=== PATIENT | female | born 1965 | race Caucasian/White ===

== ENCOUNTER → 2025-07-27 07:05 | Outpatient (CLI) | payer OTHER, SELFPAY ==
[2025-07-27 08:13] LABS: Add Manual Diff / Slide Review NO; Hematocrit 38.2 % (36-46); Hemoglobin 13.1 g/dL (12.0-16.0); Lymphocytes Absolute Auto 2700 /uL (1100-4500); Mean Corpuscular HGB Conc 34.2 % (30-36); Mean Corpuscular Hemoglobin 31.1 PG (26-34); Mean Corpuscular Volume 91.1 fL (80-100); Platelet Count 248 X10^3/uL (150-400)
[2025-07-27 08:36] LABS: Alanine Aminotransferase 12 IU/L (<35); Albumin 4.0 g/dL (3.5-5.0); Albumin Globulin Ratio 1.4 (1.0-2.8); Alkaline Phosphatase 47 U/L (38-126); Blood Urea Nitrogen 17 mg/dL (7-17); Calcium 9.6 mg/dL (8.4-10.2); Carbon Dioxide 28 mmol/L (22-32); Chloride 105 mmol/L (98-107); Estimated Glomerular Filt Rate > 60 mL/min (>60); Globulin 2.8 g/dL (1.7-4.1); Glucose 86 mg/dL (70-99); HEMOLYSIS < 15 (0-50); Potassium 4.5 mmol/L (3.4-5.1); Sodium 139 mmol/L (137-145); Total Protein 6.8 g/dL (6.3-8.2)
[2025-07-27 09:03] LABS: TSH w/ Reflex to FT4 0.32 uIU/mL (0.47-4.68)
[2025-07-27 09:27] LABS: Free T4, Direct Thyroxine 1.21 ng/dL (0.78-2.19)
== END ==
PROVIDERS: PCP Family Medicine; Referring Provider Family Medicine; Visit Provider Family Medicine
DX: Z78.0 Asymptomatic menopausal state (principal); E78.5 Hyperlipidemia, unspecified; E03.9 Hypothyroidism, unspecified
CPT/HCPCS: 36415; 80053; 84439; 84443; 85025

== ENCOUNTER 2025-08-14 08:25 | Emergency (ER) | payer OTHER, SELFPAY ==
[2025-08-14 08:55] VITALS: BP 154/81; PULSE 59; RESP 14; TEMP 36.4; O2SAT 99; BMI 24.7
== END 2025-08-14 11:46 | disposition left against medical advice (07) ==
PROVIDERS: Emergency Provider Student in an Organized Health Care Education/Training Program; PCP Family Medicine
CPT/HCPCS: 99281

== ENCOUNTER 2025-08-21 20:19 | Emergency (ER) | payer OTHER, SELFPAY ==
[2025-08-21 20:37] VITALS: BP 165/78; PULSE 60; RESP 15; TEMP 37.2; O2SAT 100; BMI 24.7
[2025-08-21 23:02] VITALS: PULSE 61; O2SAT 98
[2025-08-21 23:03] VITALS: BP 162/70; PULSE 60; O2SAT 99
[2025-08-21 23:30] VITALS: PULSE 58; O2SAT 98
[2025-08-21 23:31] VITALS: BP 156/82; PULSE 58; O2SAT 99
--- NOTE | 2025-08-21 23:52 | ED_ITS ---
HPI - Headache General Chief Complaint: Headache Stated Complaint: headache/vison changes Time Seen by Provider: 08/21/25 23:07 Mode of arrival: Ambulatory History of Present Illness HPI Narrative: 60-year-old woman active, minimal medical history over the last 2 weeks has been having episodes of very loud tinnitus, increasing overall head pressure, complaints that she can hear her pulse in her head. She does not describe any localizing neurologic symptoms such as numbness, double vision, peripheral field visual deficits. She did see her primary care physician on the and head CT scan was ordered. She was instructed to come to the emergency department with any worsening symptoms. This afternoon she had an ocular migraine in the right eye lasting approximately 20 minutes slight increased head pressure with this. All symptoms have since resolved. She is worried that that was worsening symptoms and comes in this evening for further evaluation Related Data Home Medications ?Medication ?Instructions ?Recorded ?Confirmed alprazolam 1 mg tablet (Xanax) 1 mg PO DAILY PRN anxie ty 08/21/25 08/21/25 Previous Rx's ?Medication ?Instructions ?Recorded propranolol 20 mg tablet 20 mg PO BID PRN anxiety #30 tabs 07/25/25 estradiol 1 mg tablet 1 mg PO DAILY #30 tabs 08/02 levothyroxine 100 mcg tablet 100 mcg PO DAILY #90 tabs 08/02/25 Allergies Allergy/AdvReac Type Severity Reaction Status Date / Time No Known Drug Allergies Allergy Unverified 08/21/25 20:36 Review of Systems Review of Systems Narrative: Pertinent positive and negative findings as per HPI Patient History Medical History (Updated 08/22/25 @ 00:00 by Janett Regan MD) HLD (hyperlipidemia) Hypothyroidism Menopause Surgical History History of hysterectomy Smoking Status: Never smoker Exam Initial Vital Signs Initial Vital Signs: Vital Signs Temperature 99 F 08/21/25 20:37 Pulse Rate 60 08/21/25 20:37 Respiratory Rate 15 08/21/25 20:37 Blood Pressure 165/78 H 08/21/25 20:37 Pulse Oximetry 100 08/21/25 20:37 Oxygen Delivery Method Room Air 08/21/25 20:37 General: Alert appropriate in no acute distress Respiratory: Able to speak in full sentences, no obvious respiratory distress Skin: No obvious rashes, warm and dry Neurologic: Grossly intact no obvious asymmetries or abnormalities. Visual cota are appropriate. Minimal tinnitus at this time. NIH=0 Psych: appropriate insight and affect, cooperative Course Vital Signs Vital signs: Vital Signs - 8 hr 08/21/25 20:37 08/21/25 23:02 08/21/25 23:03 Temperature 99 F Pulse Rate 60 61 Respiratory Rate 15 Blood Pressure 165/78 H 162/70 H Pulse Oximetry 100 98 Oxygen Delivery Method Room Air 08/21/25 23:03 Temperature Pulse Rate 60 Respiratory Rate Blood Pressure Pulse Oximetry 99 Oxygen Delivery Method MDM - Headache MDM Narrative Medical decision making narrative: 60-year-old woman with tinnitus and increased head pressure over the last 2 weeks ocular migraine today. No numbness, weakness, visual field deficits, double vision, amaurosis fugax, palpitations or dyspnea. Her primary care doctor has ordered a CT scan of the head and with the development of an ocular migraine lasting about 20 minutes this evening she was concerned that that might be a reason for more urgent evaluation. We discussed options in the emergency department today. Unfortunately, the CT scanner is down and we are obtaining CT scans by transporting patients to [facility]. Together, with shared decision- making, we discussed that as an option versus going home, and is now midnight, and checking on the outpatient referral as well as availability of CT scans here at [facility] for tomorrow. I believe this is a safe option and I have encouraged her to return to the emergency department with any changing symptoms. Discharge Plan Departure Patient Disposition: Home Clinical Impression: Ocular migraine, Tinnitus Activity Restrictions/Additional Instructions: Thank you for coming in today With the 2 weeks of increasing tinnitus, occasional dizziness, head fullness and generally feeling well it does not make sense that head CT is inappropriate part of your workup. Reason for more emergent imaging or things that would be concerning for a stroke, increased intracranial pressure or bleeding. Something like weakness, numbness, loss of vision, inability to speak. An ocular migraine is certainly disturbing however it is not quite the same as visual changes that 1 would associate with a stroke or a blood clot or a brain tumor. Given that, we discussed options for treatment in the emergency room tonight. Unfortunately our CT scanner has been down all day long and [facility]. I do believe that it is safe to wait until the morning and see if you are [place] referral has gone through and if an outpatient study can be done sometime tomorrow. If I did not think that this was safe and that urgent imaging is required, we would absolutely do that. If you find that you are getting worse or develop any new symptoms, please feel free to return to the emergency department for further evaluation. Prescriptions: No Action propranolol 20 mg tablet 20 mg PO BID PRN (Reason: anxiety) Qty: 30 0RF estradiol 1 mg tablet 1 mg PO DAILY Qty: 30 3RF levothyroxine 100 mcg tablet 100 mcg PO DAILY Qty: 90 3RF alprazolam [Xanax] 1 mg tablet 1 mg PO DAILY PRN (Reason: anxiety) Referrals: Amarilis Shirley MD [Primary Care Provider, Family Practice] Stand Alone Forms: Patient Portal/API
== END 2025-08-22 00:03 | disposition home or self-care (01) ==
PROVIDERS: Emergency Provider Emergency Medicine; PCP Family Medicine
DX: G43.109 Migraine with aura, not intractable, without status migrainosus (principal); H93.19 Tinnitus, unspecified ear
CPT/HCPCS: 99281

== ENCOUNTER → 2025-08-23 06:40 | Outpatient (CLI) | payer OTHER, SELFPAY ==
--- NOTE | 2025-08-23 06:41 | DI.CT.S_ITS ---
PROCEDURE: CT ANGIO HEAD AND NECK INDICATIONS: pulsating tinnitus TECHNIQUE: After the administration of intravenous contrast, 1 mm thick sections acquired from the aortic arch through the [place] [facility] [place]. 3-dimensional ewzdzkh-ftsjyblkj-jzmrawpbqf (MIP) and/or volume rendering reformats were acquired of the central intracranial vasculature and neck separately. For radiation dose reduction, the following was used: automated exposure control, adjustment of mA and/or kV according to patient size. COMPARISON: None. FINDINGS: Image quality: Diagnostic. Cerebral CT Angiogram: Internal carotid arteries: No acute findings. Intracranial ICA are patent with no significant stenosis. No occlusion. No aneurysm. Anterior cerebral arteries: Diffusely small right A1 segment which may represent congenitally small right A1 versus diffuse high-grade stenosis. Rest of the anterior cerebral arteries are well opacified without hemodynamically significant stenosis. No occlusion. No aneurysm. Middle cerebral arteries: Unremarkable. No significant stenosis. No occlusion. No aneurysm. Posterior cerebral arteries: Unremarkable. No significant stenosis. No occlusion. No aneurysm. Basilar artery: Unremarkable. No significant stenosis. No occlusion. No aneurysm. Vertebral arteries: Unremarkable as visualized. Dural venous sinuses: Unremarkable given phase of enhancement. Other: Arterial phase appearance of the brain parenchyma is unremarkable. Neck CT Angiogram: Internal carotid arteries: Unremarkable. No significant stenosis. No dissection or occlusion. Common carotid arteries: Unremarkable. No significant stenosis. No dissection or occlusion. External carotid arteries: Unremarkable. No occlusion. Vertebral arteries: Unremarkable. No significant stenosis. No dissection or occlusion. Aortic Arch and Mediastinum: Partially visualized aortic arch unremarkable without evidence of aneurysm. Origins of the great vessels unremarkable. Other: Arterial phase soft tissues of the neck and chest are unremarkable. IMPRESSION: 1. Small right A1 segment which may be congenital versus high-grade stenosis of right A1. No other significant intracranial arterial abnormality is seen. 2. No significant abnormality is seen within the arteries of the neck. Any quantitative measurements of stenosis were performed using NASCET criteria. Dictated by: Christiano Glass M.D. on 08/23/2025 at 8:14 Approved by: Christiano Glass M.D. on 08/23/2025 at 8:20
== END ==
LOC: CT 06:40
PROVIDERS: PCP Family Medicine; Referring Provider Family Medicine; Visit Provider Family Medicine
DX: H93.A9 Pulsatile tinnitus, unspecified ear (principal)
CPT/HCPCS: 70496; 70498; Q9967

== ENCOUNTER → 2025-08-27 07:53 | Outpatient (CLI) | payer OTHER, SELFPAY ==
[2025-08-27 09:12] LABS: TSH w/ Reflex to FT4 0.66 uIU/mL (0.47-4.68)
== END ==
PROVIDERS: PCP Family Medicine; Referring Provider Family Medicine; Visit Provider Family Medicine
DX: E03.9 Hypothyroidism, unspecified (principal)
CPT/HCPCS: 36415; 84443

== ENCOUNTER → 2025-09-04 16:12 | Outpatient (CLI) | payer OTHER, SELFPAY ==
--- NOTE | 2025-09-04 16:13 | DI.MG.S_ITS ---
MM screening mammo BI: 09/04/2025. BI-RADS: 1 CLINICAL: 60-year old female for bilateral screening mammogram. Tyrer-Cuzick lifetime risk of 9.1%. No personal or first-degree family history of breast cancer. Current reported family history of breast cancer: maternal grandmother. PRIOR EXAMS: 09/18/2024, 10/05/2023, 09/07/2022, 09/18/2021. MAMMOGRAPHY TECHNIQUE: 2D and 3D (tomosynthesis) digital mammographic views obtained, with additional images as needed for full coverage. Current study was also evaluated with a Computer Aided Detection (CAD) system. DENSITY C. The breasts are heterogeneously dense, which may obscure small masses. MAMMOGRAPHY FINDINGS Bilateral: No suspicious mass, asymmetry, microcalcification, or other abnormality seen. IMPRESSION: * No evidence of malignancy. RECOMMENDATIONS Bilateral * Annual screening mammography. OVERALL ASSESSMENT CATEGORY BI-RADS-1: Negative. The [employer] recommends annual screening mammography beginning at age 40 for women with average risk of breast cancer. ELECTRONICALLY SIGNED: Leann Linda M.D. on 09/12/2025 at 12:23:55 AM PT Interpreting Station ID: [id number]
== END ==
LOC: MAMMO 16:13
PROVIDERS: PCP Family Medicine; Referring Provider Family Medicine; Visit Provider Family Medicine
DX: Z12.31 Encounter for screening mammogram for malignant neoplasm of breast (principal); Z80.3 Family history of malignant neoplasm of breast; R92.333 Mammographic heterogeneous density, bilateral breasts
CPT/HCPCS: 77063; 77067